=== PATIENT | male | born 1985 | race Caucasian/White ===

== ENCOUNTER 2019-09-13 15:27 | Emergency (ER) | payer SELFPAY ==
[2019-09-13 15:30] VITALS: BP 135/65; PULSE 94; RESP 18; TEMP 36.6; O2SAT 99; BMI 19.5
[2019-09-13 15:35] VITALS: BP 135/85; PULSE 99; RESP 18; O2SAT 99
--- NOTE | 2019-09-13 15:37 | PC.NURSE ---
Pt assessed at bedside. Pt here for reports of behavioral . Pt reports he is a recovering alcoholic and has been sober for 6 months. Pt states he can't cope with stress and needs to be seen . Pt denies wanting to harm himself and states he needs to be evaluated and possibly placed on medications.
--- NOTE | 2019-09-13 15:53 | ED_ITS ---
HPI - Psych General: Chief Complaint: Psychiatric Symptoms Stated Complaint: BEHAVIORAL Time Seen by Provider: 09/13/19 15:31 History of Present Illness: HPI Narrative: 33-year-old male presents emergency room stating he wants to be admitted to the psychiatric unit. He denies any suicidal homicidal ideation he just feels very stressed and he feels like he may be put in half-way if he is not admitted to the psychiatric unit. He states that in the past when he gets like this he will do something stupid with little results in him getting arrested. He says he has some marital stressors in his life now is having difficulty coping with him he is not on any medications. He has previously been admitted to the psychiatric unit. He is not currently taking any prescriptions. MD complaint: feels depressed Onset (ago): day(s) Duration: constant Associated symptoms: Deny homicidal ideation or suicidal ideation Review of Systems Const: Denies: fever, chills, body aches, change in appetite, fatigue or malaise ENMT: Denies: throat pain, ear pain, nasal discharge or nasal congestion Card: Denies: chest pain, edema, shortness of breath on exertion or shortness of breath when lying down Resp: Denies: shortness of breath, productive cough or non-productive cough GI: Denies: abdominal pain, nausea, vomiting, vomiting blood, coffee grounds in vomit, diarrhea, constipation, bloating, blood in stool or black tarry stool : Denies: flank pain, painful urination, urinary frequency or urinary urgency Skin/Breast: Denies: rash or itching Psych: Denies: suicidal ideation or homicidal ideation [facility] ED PFSH: Social History Smoking and tobacco status: current every day smoker Physical Exam Const: COMMON NORMALS: no apparent distress GENERAL APPEARANCE: cooperative and comfortable ORIENTATION/CONSCIOUSNESS: Yes awake, Yes oriented to person, Yes oriented to place and Yes oriented to time HENMT: COMMON NORMALS: normocephalic, head/scalp atraumatic, hearing grossly normal bilaterally, external ears normal, EAC's normal, TM's normal bilaterally, nasal mucous membranes and turbinates normal, moist oral mucous membranes and oropharynx normal HEAD & SCALP: normocephalic and atraumatic NOSE: nasal mucous membranes and turbinates normal EXTERNAL EAR: Yes external ears normal EXTERNAL AUDITORY CANAL: EAC's normal TYMPANIC MEMBRANE: TM's normal bilaterally Eye: COMMON NORMALS: PERRL, EOMs intact bilaterally, conjunctivae normal and no scleral icterus CONJUNCTIVA: Yes conjunctivae normal PUPIL: Yes PERRL Neck/C-Spine: COMMON NORMALS: full ROM, no lymphadenopathy, supple and no JVD Lymph: LYMPHATIC: no lymphadenopathy noted and no lymphedema noted Resp: COMMON NORMALS: normal respiratory effort, no retractions, no use of accessory muscles and clear to auscultation bilaterally AUSCULTATION: clear to auscultation bilaterally Cardio: COMMON NORMALS: no JVD, regular rate, regular rhythm and no murmurs RATE: regular rate RHYTHM: regular rhythm GI: COMMON NORMALS: soft to palpation and no hepatosplenomegaly AUSCULTATION: Yes normoactive bowel sounds PALPATION: Yes soft, No tender, No guarding and Yes no hepatosplenomegaly Extremity: COMMON NORMALS: normal to inspection, normal capillary refill, no clubbing, cyanosis or edema, no calf tenderness and no pedal edema Neuro: SENSORIUM/ORIENTATION: Yes oriented to person, Yes oriented to place and Yes oriented to time Skin: COMMON NORMALS: no rashes or lesions noted GENERAL SKIN EXAM: no rashes or lesions noted MDM - Psych MDM Narrative: Medical decision making narrative: Patient is neither suicidal or homicidal. He has threatened to beat up some other family members but states he does not plan to do it and does not plan to kill anyone. I reviewed the case with Dr. patel. Neither of us feel at this point there is any indication to admit the patient. He is not having any auditory or visual hallucinations. He is not having any suicidal ideation. A family member later called in stating they wanted him committed because he had threatened them advised him that they should reported to the police. Discharge Plan Discharge Patient Disposition: Home, Self-Care Clinical Impression: Bipolar disorder, Restless leg syndrome, Attention deficit hyperactivity disorder (ADHD) Condition: Stable Prescriptions: New hydroxyzine HCl 10 mg tablet 10 mg PO Q8H PRN (Reason: anxiety) Qty: 10 RF: 0 No Action trazodone 50 mg tablet 50 mg PO .HS PRN (Reason: sleep) RF: 0 risperidone [Risperdal] 1 mg tablet 1 mg PO BID RF: 0 risperidone [Risperdal] 1 mg tablet 1 mg PO .1/2 to One Daily PRNRF: 0 Discharge Orders: Discharge Order (Routine); Ordered 09/13/19 Ordered By: Keshawn Colón Referrals: Pacheco Wells MD [Family Provider] - Activity Restrictions/Additional Instructions: Follow-up with [facility]. Discharge Date/Time: 09/13/19 16:44 Coding Level of Care Code ED Saw Cleaner for Chg Fwd Exam Comprehensive
[2019-09-13 15:57] VITALS: PULSE 94; RESP 16; O2SAT 99
[2019-09-13 16:41] VITALS: RESP 16
== END 2019-09-13 16:44 | disposition home or self-care (01) ==
LOC: ER 16:49
PROVIDERS: Emergency Provider Family Medicine; Family Provider Internal Medicine Medical Oncology
DX: F31.9 Bipolar disorder, unspecified (principal); G25.81 Restless legs syndrome; F90.9 Attention-deficit hyperactivity disorder, unspecified type; F17.210 Nicotine dependence, cigarettes, uncomplicated
CPT/HCPCS: 12345; 99284; A9270; J3490

== ENCOUNTER 2019-09-13 17:35 | Inpatient (IN) | payer SELFPAY ==
--- NOTE | 2019-09-13 17:56 | ED_ITS ---
HPI - Psych General: Chief Complaint: Psychiatric Symptoms Stated Complaint: si Time Seen by Provider: 09/13/19 17:43 History of Present Illness: MD complaint: suicidal ideation Onset (ago): hour(s) Duration: constant History of same: Yes Relieving factors: none Context: significant life stressor Associated psychiatric symptoms: depression, suicidal ideation, racing thoughts and auditory hallucinations Associated symptoms: Reports auditory hallucinations; Deny visual hallucinations Treatments prior to arrival: none If self harm: admits thoughts of self harm Details of plan: I'm gonna cut my head of with my knife if you let me outta here . Review of Systems Const: Denies: fever or chills Eyes: Denies: change in vision or blurry vision ENMT: Denies: painful swallowing or facial/sinus pain Card: Denies: chest pain or palpitations Resp: Denies: shortness of breath, productive cough, non-productive cough or wheezing GI: Denies: abdominal pain, nausea or vomiting : Denies: difficulty urinating, painful urination or blood in urine Musc: Denies: neck pain, back pain, redness or joint warmth Skin/Breast: Denies: rash, itching or redness Neuro: Denies: headache, dizziness, vertigo, confusion or seizure-like activity Psych: Reports: anxiety and auditory hallucinations; Denies: visual hallucinations PFSH ED PFSH: Social History Smoking and tobacco status: current every day smoker Physical Exam Const: GENERAL APPEARANCE: well developed ORIENTATION/CONSCIOUSNESS: Yes oriented to person, Yes oriented to place and Yes oriented to time HENMT: COMMON NORMALS: normocephalic, external ears normal and external nose normal HEAD & SCALP: normocephalic; no scalp tenderness FACE & SINUS: normal facial exam NOSE: external nose normal and no nasal discharge EXTERNAL EAR: Yes external ears normal MOUTH: tongue normal Eye: COMMON NORMALS: PERRL, EOMs intact bilaterally and conjunctivae normal EYELID: eyelids normal CONJUNCTIVA: Yes conjunctivae normal PUPIL: Yes PERRL Neck/C-Spine: COMMON NORMALS: full ROM GENERAL: No tracheal deviation Chest: COMMONS NORMALS: inspection of chest normal CHEST: No tenderness Resp: COMMON NORMALS: clear to auscultation bilaterally EFFORT & INSPECTION: No tachypneic, No respiratory distress, No retractions, No uses accessory muscles and No tracheal deviation AUSCULTATION: clear to auscultation bilaterally, no rhonchi, no wheezes and lung sounds not diminished Cardio: COMMON NORMALS: regular rate and regular rhythm RATE: regular rate RHYTHM: regular rhythm HEART SOUNDS: no murmurs PERIPHERAL PULSES: radial pulses present GI: INSPECTION: No abdominal distension AUSCULTATION: No hyperactive bowel sounds and No hypoactive bowel sounds PALPATION: No guarding and No rigid PERCUSSION: no dullness to percussion and no tympanic to percussion Neuro: SENSORIUM/ORIENTATION: Yes oriented to person, Yes oriented to place and Yes oriented to time Psych: COMMON NORMALS: mental status grossly normal Skin: COMMON NORMALS: no rashes or lesions noted GENERAL SKIN EXAM: no rashes or lesions noted MDM - Psych MDM Narrative: Medical decision making narrative: 33-year-old male here earlier with some agitation. He checks back in, stating that he is worse, he cannot calm down . And that he is considering harming himself if he can get help. He is willing to stay he has been respectful, and has not refused any care. He states he is hearing voices. He is given a shot of Haldol, and some oral Ativan. He will go to the [facility] for further evaluation and management. Lab Data: Labs: Lab Results 09/13/19 09/13/19 09/13/19 Range/Units 18:15 18:15 18:33 WBC 11.5 H (4.0-10.0) 10^3/ uL RBC 4.80 (4.1-5.3) 10^6/u L Hgb 14.8 (11.7-16.6) g/dL Hct 45.3 (42.0-52.0) % MCV 94.4 H (80-94) fL MCH 30.8 (28.0-34.0) pg MCHC 32.7 (30.0-36.0) g/dL RDW 14.0 (12.1-15.1) % Plt Count 254 (130-400) 10^3/c mm MPV 10.6 H (7.4-10.4) fL Neut % (Auto) 69.8 % Lymph % (Auto) 21.4 % [place] % (Auto) 6.9 % Eos % (Auto) 1.0 % Baso % (Auto) 0.5 % Neut # (Auto) 8.0 H (1.8-7.7) 10^3/u L Lymph # (Auto) 2.5 (0.8-4.8) 10^3/u L [place] # (Auto) 0.8 (0.2-0.9) 10^3/u L Eos # (Auto) 0.1 (0.0-0.8) 10^3/u L Baso # (Auto) 0.1 (0.0-0.1) 10^3/u L Nucleated RBC % (a uto) 0 % Nucleated RBCs # 0.0 /100WBC Sodium 139 (136-145) mmol/L Potassium 3.5 (3.5-5.1) mmol/L Chloride 99 (98-107) mmol/L Carbon Dioxide 30 H (22-29) mmol/L Anion Gap 13.5 (5-19) BUN 17 (6-20) mg/dL Creatinine 1.1 (0.7-1.2) mg/dL GFR Calculation 76.6 L (90-130) mL/min Glucose 126 H (65-115) mg/dL Calculated Osmolal ity 286 (285-295) mOsm/k g Calcium 9.8 (8.5-10.5) mg/dL Total Bilirubin 0.3 (0.15-1.2) mg/dL AST 61 H (0-40) U/L ALT 159 H (0-41) U/L Alkaline Phosphata se 61 (40-130) IU/L Total Protein 7.3 (6.6-8.7) g/dL Albumin 4.6 (3.5-5.2) g/dL Globulin 2.7 (1.3-4.6) g/dL TSH 2.42 (0.27-4.20) uIU/ mL Urine Color Yellow (Yellow) Urine Appearance Cloudy (CLEAR) Urine pH 7 (5-7) Ur Specific Gravit y 1.010 (1.005-1.030) Urine Protein Neg (Negative) Urine Glucose (UA) Norm (Normal) Urine Ketones Negative (Negative) Urine Blood Neg (Negative) Urine Nitrate Negative (Negative) Urine Bilirubin Neg (NEGATIVE) Urine Urobilinogen 1 H (Negative) mg/dL Ur Leukocyte Cristina ase Negative (Negative) Urine RBC 5-10 H (0-2) /hpf Urine WBC 0-4 H (0-5) /hpf Ur Squamous Epith Cells Rare (0-5) Amorphous Sediment 3+ Urine Bacteria Trace (NONE) Urine Mucus Trace Urine Sperm 1+ Salicylates < 0.3 L (3-10) mg/dL Urine Opiates Scre en (Negative) ng/mL Acetaminophen < 5.0 L (10-30) ug/mL Ur Barbiturates Sc reen (Negative) ng/mL Ur Phencyclidine S crn (Negative) ng/mL Ur Amphetamines Sc reen (Negative) ng/mL U Benzodiazepines Scrn (Negative) ng/mL Urine Cocaine Scre en (Negative) ng/mL U Marijuana (THC) Screen (Negative) ng/mL Ethyl Alcohol < 10 (0-10) mg/dL 09/13/19 Range/Units 18:33 WBC (4.0-10.0) 10^3/ uL RBC (4.1-5.3) 10^6/u L Hgb (11.7-16.6) g/dL Hct (42.0-52.0) % MCV (80-94) fL MCH (28.0-34.0) pg MCHC (30.0-36.0) g/dL RDW (12.1-15.1) % Plt Count (130-400) 10^3/c mm MPV (7.4-10.4) fL Neut % (Auto) % Lymph % (Auto) % [place] % (Auto) % Eos % (Auto) % Baso % (Auto) % Neut # (Auto) (1.8-7.7) 10^3/u L Lymph # (Auto) (0.8-4.8) 10^3/u L [place] # (Auto) (0.2-0.9) 10^3/u L Eos # (Auto) (0.0-0.8) 10^3/u L Baso # (Auto) (0.0-0.1) 10^3/u L Nucleated RBC % (a uto) % Nucleated RBCs # /100WBC Sodium (136-145) mmol/L Potassium (3.5-5.1) mmol/L Chloride (98-107) mmol/L Carbon Dioxide (22-29) mmol/L Anion Gap (5-19) BUN (6-20) mg/dL Creatinine (0.7-1.2) mg/dL GFR Calculation (90-130) mL/min Glucose (65-115) mg/dL Calculated Osmolal ity (285-295) mOsm/k g Calcium (8.5-10.5) mg/dL Total Bilirubin (0.15-1.2) mg/dL AST (0-40) U/L ALT (0-41) U/L Alkaline Phosphata se (40-130) IU/L Total Protein (6.6-8.7) g/dL Albumin (3.5-5.2) g/dL Globulin (1.3-4.6) g/dL TSH (0.27-4.20) uIU/ mL Urine Color (Yellow) Urine Appearance (CLEAR) Urine pH (5-7) Ur Specific Gravit y (1.005-1.030) Urine Protein (Negative) Urine Glucose (UA) (Normal) Urine Ketones (Negative) Urine Blood (Negative) Urine Nitrate (Negative) Urine Bilirubin (NEGATIVE) Urine Urobilinogen (Negative) mg/dL Ur Leukocyte Cristina ase (Negative) Urine RBC (0-2) /hpf Urine WBC (0-5) /hpf Ur Squamous Epith Cells (0-5) Amorphous Sediment Urine Bacteria (NONE) Urine Mucus Urine Sperm Salicylates (3-10) mg/dL Urine Opiates Scre en Negative (Negative) ng/mL Acetaminophen (10-30) ug/mL Ur Barbiturates Sc reen Negative (Negative) ng/mL Ur Phencyclidine S crn Negative (Negative) ng/mL Ur Amphetamines Sc reen Negative (Negative) ng/mL U Benzodiazepines Scrn Negative (Negative) ng/mL Urine Cocaine Scre en Negative (Negative) ng/mL U Marijuana (THC) Screen Positive H (Negative) ng/mL Ethyl Alcohol (0-10) mg/dL Discharge Plan Discharge Admit Provider: Dimitry Cho Discharge Date/Time: 09/13/19 19:56 Coding Level of Care Code ED Spray Gun Repairer for Chg Fwd Exam Comprehensive
[2019-09-13 18:03] VITALS: BP 139/91; PULSE 106; RESP 18; TEMP 36.7; O2SAT 98; BMI 22.1
[2019-09-13 18:05] VITALS: RESP 18
[2019-09-13 18:22] LABS: Basophils # 0.1 10^3/uL (0.0-0.1); Basophils % 0.5 %; Eosinophils # 0.1 10^3/uL (0.0-0.8); Hematocrit 45.3 % (42.0-52.0); Hemoglobin 14.8 g/dL (11.7-16.6); Lymphocytes # 2.5 10^3/uL (0.8-4.8); Lymphocytes % 21.4 %; Mean Corpuscular HGB Conc 32.7 g/dL (30.0-36.0); Mean Corpuscular Hemoglobin 30.8 pg (28.0-34.0); Mean Corpuscular Volume 94.4 fL (80-94); Mean Platelet Volume 10.6 fL (7.4-10.4); Monocytes # 0.8 10^3/uL (0.2-0.9); Monocytes % 6.9 %; Neutrophils % 69.8 %; Nucleated Red Blood Cells % 0 %; Platelet Count 254 10^3/cmm (130-400); White Blood Count 11.5 10^3/uL (4.0-10.0)
[2019-09-13] MEDS: LORazepam 2 mg Tablet PO (18:27)
[2019-09-13] MEDS: nicotine 21 mg Patch 1 PATCH TRANSDERMA (18:28)
[2019-09-13] MEDS: haloperidol inj 5 mg/mL INJ 1 mL IM (18:29)
[2019-09-13 18:48] LABS: Acetaminophen < 5.0 ug/mL (10-30); Alanine Aminotransferase 159 U/L (0-41); Albumin Level 4.6 g/dL (3.5-5.2); Alcohol Level < 10 mg/dL (0-10); Alkaline Phosphatase 61 IU/L (40-130); Anion Gap 13.5 (5-19); Aspartate Amino Transferase 61 U/L (0-40); Blood Urea Nitrogen 17 mg/dL (6-20); Calcium 9.8 mg/dL (8.5-10.5); Carbon Dioxide 30 mmol/L (22-29); Chloride 99 mmol/L (98-107); Globulin 2.7 g/dL (1.3-4.6); Glomerular Filtration Rate 76.6 mL/min (90-130); Glucose 126 mg/dL (65-115); Osmolality Calculated 286 mOsm/kg (285-295); Potassium 3.5 mmol/L (3.5-5.1); Salicylate < 0.3 mg/dL (3-10); Sodium 139 mmol/L (136-145); Total Bilirubin 0.3 mg/dL (0.15-1.2); Total Protein 7.3 g/dL (6.6-8.7)
[2019-09-13 18:49] LABS: Thyroid Stimulating Hormone 2.42 uIU/mL (0.27-4.20)
[2019-09-13 18:58] LABS: Bilirubin Urine Neg (NEGATIVE); Blood Urine Neg (Negative); Glucose Urine UA Norm (Normal); Ketones Urine Negative (Negative); Leukocyte Esterase Urine Negative (Negative); Nitrate Urine Negative (Negative); Protein Urine Neg (Negative); Urine Appearance Cloudy (CLEAR); Urine Color Yellow (Yellow); Urobilinogen Urine 1 mg/dL (Negative); pH Urine 7 (5-7)
[2019-09-13 18:59] LABS: Add Urine Microscopic? YES
[2019-09-13 19:00] LABS: WBC Urine 0-4 /hpf (0-5)
[2019-09-13 19:01] LABS: Amphetamines Screen Urine Negative (Negative); Barbiturates Screen Urine Negative (Negative); Benzodiazepines Screen Urine Negative (Negative); Cocaine Screen Urine Negative (Negative); Opiate Screen Urine Negative (Negative); PCP Screen Urine Negative (Negative); THC Screen Urine Positive (Negative)
[2019-09-13 19:02] LABS: Amorphous Sediment Urine 3+; Bacteria Urine TRACE; Mucus Urine TRACE; Sperm Urine 1+; Squamous Epithelial Cell Urine RARE (0-5)
[2019-09-13 19:03] LABS: Add Urine Culture? No
[2019-09-13 19:41] VITALS: BP 118/62; PULSE 74; RESP 16; O2SAT 98
[2019-09-13 19:52] VITALS: BP 99/68; PULSE 93; RESP 18; TEMP 36.6; O2SAT 96
[2019-09-13 22:00] VITALS: BP 99/68; PULSE 93; RESP 18; TEMP 36.6; O2SAT 96
[2019-09-14 06:00] VITALS: BP 106/71; PULSE 86; RESP 17; TEMP 36.6; O2SAT 97
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
[2019-09-14] MEDS: lamoTRIgine 25 mg Tablet PO (12:41)
[2019-09-14 14:00] VITALS: BP 110/70; PULSE 80; RESP 18; TEMP 37; O2SAT 97
[2019-09-14] MEDS: propranolol 20 mg Tablet PO ×2 (15:43→21:24)
[2019-09-14] MEDS: nicotine 2 mg Gum BUCCAL (18:01)
[2019-09-14 21:37] VITALS: BP 111/71; PULSE 75; RESP 21; TEMP 37; O2SAT 98
--- NOTE | 2019-09-14 21:48 | PC.NURSE ---
Pt given HS propranolol at 2100.
[2019-09-15 06:00] VITALS: BP 115/70; PULSE 58; RESP 20; TEMP 36.6; O2SAT 98
[2019-09-15] MEDS: propranolol 20 mg Tablet PO ×3 (08:09→20:43)
[2019-09-15] MEDS: lamoTRIgine 25 mg Tablet PO (08:09)
[2019-09-15] MEDS: nicotine 2 mg Gum BUCCAL ×2 (08:10→15:02)
[2019-09-15] MEDS: hyDROXYzine 25 mg Capsule 50 MG PO ×2 (10:10→20:43)
--- NOTE | 2019-09-15 10:11 | PC.NURSE ---
PRN VISTARIL 50 MG GIVEN PO PER PT C/O INCREASED ANXIETY. 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 WILL CONT TO MONITOR
[2019-09-15 14:00] VITALS: BP 101/63; PULSE 63; RESP 20; TEMP 37.1; O2SAT 97
--- NOTE | 2019-09-15 15:05 | P.PN_ITS ---
Subjective NPU Subjective: Interval history: Diony presents today reporting that things are going a little better. He reports he does not feel a major impact from the medication. We discussed that fact that, at this point, we desire that he does not have any side effects and that the Lamictal will be a slow but steady improvement as we increase the medication and avoid the risk for Wright-Hussein syndrome, by taking it at the appropriate pace. We agreed that we would consider adding additional medication but that ultimately, in this situation, Lamictal as a mood stabilizer, and given his resentment for the way that medications might make him feel this is a really good option. He had some insight today identifying his role in things not going well for him and the importance of him making appropriate choices. He still seemed somewhat resistant to identifying the role that drugs of abuse might have in his decompensation and limitations, given the clarity that he noted in it interfering with his ability to hold a job or sustain relationships. Mental Status Exam MSE Comments: This is a slender, white male, with tattoos on his exposed skin, with adequate grooming and eye contact. With noted earlobe mutilation from gaging without the gages in. No abnormal movements, except for improving psychomotor agitation. More cooperative with exam in improving but mild distress. Speech was increased rate and volume but improving. Mood described as okay; affect less irritable. Thought process, organized. Thought content: patient denied any suicidal or homicidal ideation, there were no delusions reported or noted, he denied any auditory or visual hallucinations. Attention, concentration, and memory appeared intact but were not formally tested. He is alert and oriented times three. Insight and judgment are limited but improving. Vitals/I&O/Wt Last Vital Signs Temp 97.9 F 09/15/19 22:00 Pulse 60 09/15/19 22:00 Resp 17 09/15/19 22:00 BP 120/72 09/15/19 22:00 Pulse Ox 98 09/15/19 22:00 Weight last 48 hrs Weight 61.326 kg Data NPU : 09/13/19 18:15 09/13/19 18:15 A&P Additional A&P Information (1) Bipolar disorder: This is a 33 year old, white male, with active addiction, post-traumatic stress disorder, and likely Cluster B pathology, who presents now seemingly open to medication. Continue current medication. Encourage individual and milieu therapy. Continue q 15-minute checks for safety. Encourage sober living aftercare at the highest level of treatment to which he is willing to commit. (2) Attention deficit hyperactivity disorder (ADHD): (3) Anxiety: (4) Depression: Involuntary Hold Information 96 Hour Hold: 96 Hour Involuntary Admission: No Attestations NPU Medical Necessity Statement*: Inpatient hospitalization is medically necessary and the clinically appropriate intervention at this time. We will monitor medications and adjust as indicated. Likely length of stay 1-3 days. 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
[2019-09-15] MEDS: OLANZapine ODT 5 MG TABLET PO (15:36)
--- NOTE | 2019-09-15 15:36 | PC.NURSE ---
PRN ZYPREXA ZYDIS 5 MG GIVEN PO PER PT C/O AGITATION. PT UPSET AFTER PHONE CALL, YELLING AND PRESSURED SPEECH NOTED WHILE ON PHONE. PT OFFERED PRN MEDICATION PT STATED HE WOULD TAKE IF IT WORKED, HIT ME WITH A SHOT THOSE REALLY WORK! WILL CONT TO MONITOR
--- NOTE | 2019-09-15 21:48 | PC.NURSE ---
Pt given scheduled propranolol and prn visteril at 2100.
[2019-09-15 22:00] VITALS: BP 120/72; PULSE 60; RESP 17; TEMP 36.6; O2SAT 98
[2019-09-16 05:52] VITALS: BP 112/74; PULSE 66; RESP 20; TEMP 36.7; O2SAT 99
[2019-09-16] MEDS: nicotine 2 mg Gum BUCCAL ×3 (06:23→17:54)
[2019-09-16] MEDS: propranolol 20 mg Tablet PO ×3 (08:27→20:26)
[2019-09-16] MEDS: lamoTRIgine 25 mg Tablet PO (08:27)
[2019-09-16] MEDS: hyDROXYzine 25 mg Capsule 50 MG PO ×2 (11:20→20:25)
--- NOTE | 2019-09-16 11:21 | PC.NURSE ---
PRN VISTARIL 50 MG GIVEN PO PER PT C/O ANXIETY
--- NOTE | 2019-09-16 13:44 | P.PN_ITS ---
Subjective NPU Subjective: Interval history: Diony presented today much more amenable to conversation without the significant negative energy and anger that had dominated the initial conversations; the irritability, that was overwhelming during his initial couple of interviews, has been replaced with reflection and concern for how does he get this right and not continue this pattern beyond this 33th year. We had a fairly insightful conversation about how does change occur and what does he need to do to institute change in his life, including identifying where he is, identifying the issues, identifying where he wants to be and setting goals, but most importantly having accountability as part of this process. Mental Status Exam MSE Comments: This is a slender, white male, with adequate dress, grooming, and eye contact. He has significant tattooing on his exposed skin, especially on his left arm and some on his face. He has garcia earlobes, without the gages in, so they are somewhat hanging. No abnormal movements. Cooperative with exam in no acute distress. Speech was normal rate and volume. Mood described as a little better; affect congruent and occasionally tearful, but in an appropriate manner. Thought process, organized. Thought content: patient denied any suicidal or homicidal ideation, there were no delusions reported or noted, he denied any auditory or visual hallucinations. Attention, concentration, and memory appeared intact but were not formally tested. Alert and oriented times three. Insight and judgment are improving. Vitals/I&O/Wt Last Vital Signs Temp 98.1 F 09/16/19 22:00 Pulse 84 09/16/19 22:00 Resp 18 09/16/19 22:00 BP 107/67 09/16/19 22:00 Pulse Ox 98 09/16/19 22:00 Data NPU : 09/13/19 18:15 09/13/19 18:15 A&P Additional A&P Information (1) Bipolar disorder: This is a 33 year old, white male, with active addiction, post-traumatic stress disorder, and likely Cluster B pathology, who presents now seemingly open to medication. Continue current medication. Encourage individual and milieu therapy. Continue q 15-minute checks for safety. Encourage sober living aftercare at the highest level of treatment to which he is willing to commit. (2) Attention deficit hyperactivity disorder (ADHD): (3) Anxiety: (4) Depression Involuntary Hold Information 96 Hour Hold: 96 Hour Involuntary Admission: No Attestations NPU Medical Necessity Statement*: Inpatient hospitalization is medically necessary and the clinically appropriate intervention at this time. We will monitor medications and adjust as indicated. Likely length of stay 1-3 days. 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
[2019-09-16 14:00] VITALS: BP 100/69; PULSE 71; RESP 18; TEMP 36.9; O2SAT 98
--- NOTE | 2019-09-16 20:26 | PC.NURSE ---
Pt given scheduled propranolo and PRN Visteril.
[2019-09-16 22:00] VITALS: BP 107/67; PULSE 84; RESP 18; TEMP 36.7; O2SAT 98
[2019-09-17 06:00] VITALS: BP 108/72; PULSE 58; RESP 18; TEMP 36.4; O2SAT 99
[2019-09-17] MEDS: nicotine 2 mg Gum BUCCAL ×4 (06:30→17:56)
[2019-09-17] MEDS: propranolol 20 mg Tablet PO ×3 (08:05→20:28)
[2019-09-17] MEDS: hyDROXYzine 25 mg Capsule 50 MG PO (08:05)
[2019-09-17] MEDS: lamoTRIgine 25 mg Tablet PO (08:05)
--- NOTE | 2019-09-17 08:06 | PC.NURSE ---
PRN VISTARIL 50 MG GIVEN PO PER PT C/O ANXIETY. PT STATED HE DIDN'T SLEEP AT ALL LAST NIGHT, WAS UP EVERY HOUR ON THE HOUR WILL CONT TO MONITOR.
[2019-09-17 14:00] VITALS: BP 107/72; PULSE 57; RESP 18; TEMP 36.8; O2SAT 99
--- NOTE | 2019-09-17 14:41 | P.PN_ITS ---
Subjective NPU Subjective: Interval history: Diony presents today reporting that he was having a rough day. He had talked to his mother who had initially said he could come home, but then she was kind of balking on that. In talking to social workers, the possibility of a place called [facility] was raised and initially he was struggling because they have some pretty strict rules, first month no phone, as well as no drugs including marijuana, etc. At first he was looking at the glass though is happy empty, and was thinking he might reject the offer and was trying to figure out what he was going to do, but after our conversation he acknowledged that this is only a short time. 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 He reports he is eating and sleeping better. Mental Status Exam MSE Comments: This is a well-nourished, slender, white male, with adequate dress, grooming, and eye contact. Significant tattooing on his exposed skin including his face, neck, and prominently on his left arm with poor dentition. Cooperative with exam in no acute distress. Speech was more normal rate and volume. Mood described as a little better but stressed. Affect congruent. Thought process, organized. Thought content: patient denied any suicidal or homicidal ideation, there were no delusions reported or noted, patient denied any auditory or visual hallucinations. Attention, concentration, and memory appeared intact but were not formally tested. Alert and oriented times three. Insight and judgment are improving. Vitals/I&O/Wt Last Vital Signs Temp 98.5 F 09/17/19 21:43 Pulse 58 L 09/17/19 21:43 Resp 18 09/17/19 21:43 BP 94/57 09/17/19 21:43 Pulse Ox 99 09/17/19 21:43 Data NPU : 09/13/19 18:15 09/13/19 18:15 A&P Additional A&P Information (1) Bipolar disorder: This is a 33 year old, white male, with active addiction, post-traumatic stress disorder, and likely Cluster B pathology, who presents now seemingly open to medication. Continue current medication. Encourage individual and milieu therapy. Continue q 15-minute checks for safety. Encourage sober living aftercare at the highest level of treatment to which he is willing to commit. (2) Attention deficit hyperactivity disorder (ADHD): (3) Anxiety: (4) Depression Involuntary Hold Information 96 Hour Hold: 96 Hour Involuntary Admission: No Attestations NPU Medical Necessity Statement*: Inpatient hospitalization is medically necessary and the clinically appropriate intervention at this time. We will monitor medications and adjust as indicated. Likely length of stay 1-2 days. 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
[2019-09-17] MEDS: haloperidol 5 mg Tablet PO (16:53)
--- NOTE | 2019-09-17 16:54 | PC.NURSE ---
PRN HALDOL 5 MG GIVEN PO PER PT C/O ANXIETY! AGITATION! HASN'T SLEPT IN 3 FREAKING DAYS! PT STATED HE WOULD RATHER HAVE A SHOT IN THE BUTT. PILL OFFERED & PT AGREEABLE TO TAKE MED. WILL CONT TO MONITOR.
[2019-09-17] MEDS: trazodone 50 mg Tablet PO (20:30)
[2019-09-17 21:43] VITALS: BP 94/57; PULSE 58; RESP 18; TEMP 36.9; O2SAT 99
[2019-09-18 06:00] VITALS: BP 127/77; PULSE 50; RESP 18; TEMP 36.4; O2SAT 98
[2019-09-18] MEDS: nicotine 2 mg Gum BUCCAL ×5 (06:07→18:12)
[2019-09-18] MEDS: propranolol 20 mg Tablet PO ×3 (08:55→21:00)
[2019-09-18] MEDS: haloperidol 5 mg Tablet PO ×2 (08:55→13:22)
[2019-09-18] MEDS: lamoTRIgine 25 mg Tablet PO (08:55)
--- NOTE | 2019-09-18 08:55 | PC.NURSE ---
Addendum entered by Sallie Madrigal LPN 09/18/19 10:00: MEDICATION EFFECTIVE. PATIENT IS LYING IN BED RESTING. RESPIRATIONS EVEN AND UNLABORED. Original Note: PRN HALDOL HALDOL 5MG PO PER PATIENT C/O AGITATION/ANXIETY. WILL CONTINUE TO MONITOR FOR MEDICATION EFFECTIVENESS.
[2019-09-18 13:17] VITALS: BP 102/65; PULSE 55; RESP 18; TEMP 36.9; O2SAT 96
--- NOTE | 2019-09-18 13:22 | PC.NURSE ---
PRN HALDOL HALDOL 5MG PO PER PATIENT C/O AGITATION/ANXIETY. WILL CONTINUE TO MONITOR FOR MEDICATION EFFECTIVENESS.
--- NOTE | 2019-09-18 14:20 | PC.NURSE ---
PRN HALDOL FOLLOW UP MEDICATION EFFECTIVE. NO FURTHER C/O AGITATION/ANXIETY.
--- NOTE | 2019-09-18 15:54 | PM.NPN ---
Subjective NPU Subjective: Interval history: Diony presents today reporting that he is feeling better. He feels really good about his decision to move forward with [employer]. 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 He denies any issues with the medication, however, he has been taking Haldol as a prn medication and reported some stiffness such that we encouraged some Cogentin doses. 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 Otherwise, he endorses optimism about discharge tomorrow. Mental Status Exam MSE Comments: This is a slender, white male, with adequate dress, grooming, and eye contact, with significant tattooing on his exposed skin, especially his left arm, and also on his neck and face. With poor dentition. No abnormal movements. Cooperative with exam in no acute distress. Speech was slightly increased rate and normal volume. Mood described as feeling optimistic; affect congruent. Thought process, organized. Thought content: patient denied any suicidal or homicidal ideation, there were no delusions reported or noted, patient denied any auditory or visual hallucinations. Attention, concentration, and memory appeared intact but were not formally tested. He is alert and oriented times three. Insight and judgment are fair. Vitals/I&O/Wt Last Vital Signs Temp 97.3 F L 09/18/19 21:14 Pulse 59 L 09/18/19 21:14 Resp 19 H 09/18/19 21:14 BP 131/76 09/18/19 21:14 Pulse Ox 100 09/18/19 21:14 Data NPU : 09/13/19 18:15 09/13/19 18:15 A&P Additional A&P Information (1) Bipolar disorder: This is a 33 year old, white male, with active addiction, post-traumatic stress disorder, and likely Cluster B pathology, who presents now seemingly open to medication. Continue current medication. Encourage individual and milieu therapy. Continue q 15-minute checks for safety. Encourage sober living aftercare at the highest level of treatment to which he is willing to commit. (2) Attention deficit hyperactivity disorder (ADHD): (3) Anxiety: (4) Depression Involuntary Hold Information 96 Hour Hold: 96 Hour Involuntary Admission: No Attestations NPU Medical Necessity Statement*: Inpatient hospitalization is medically necessary and the clinically appropriate intervention at this time. We will monitor medications and adjust as indicated. Tomorrow. Coding Level of Care Code Acute Dish Maker for Annabelle Castillo
[2019-09-18] MEDS: benztropine 1 mg Tablet PO ×2 (19:11→21:00)
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
[2019-09-18 21:14] VITALS: BP 131/76; PULSE 59; RESP 19; TEMP 36.3; O2SAT 100
[2019-09-19 06:00] VITALS: BP 105/61; PULSE 55; RESP 17; TEMP 36.9; O2SAT 98
[2019-09-19] MEDS: nicotine 2 mg Gum BUCCAL (06:46)
[2019-09-19] MEDS: propranolol 20 mg Tablet PO (09:17)
[2019-09-19] MEDS: lamoTRIgine 25 mg Tablet PO (09:17)
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
[2019-09-19 10:58] VITALS: BP 105/61; PULSE 55; RESP 17; TEMP 36.9; O2SAT 98
== END 2019-09-19 11:28 | disposition home or self-care (01) | DRG 885 ==
LOC: ER 18:37 → NP 19:36
PROVIDERS: Admitting Provider Psychiatry & Neurology Psychiatry; Emergency Provider Emergency Medicine; Family Provider Internal Medicine Medical Oncology; Visit Provider Psychiatry & Neurology Psychiatry
DX: F31.9 Bipolar disorder, unspecified (principal); R45.851 Suicidal ideations; F41.8 Other specified anxiety disorders; F90.9 Attention-deficit hyperactivity disorder, unspecified type; F17.210 Nicotine dependence, cigarettes, uncomplicated; F10.20 Alcohol dependence, uncomplicated; F12.20 Cannabis dependence, uncomplicated
CPT/HCPCS: 12345; 80053; 80306; 80307; 81001; 84443; 85025; 96372; 99284; J1630

== ENCOUNTER 2019-11-17 12:23 | Emergency (ER) | payer SELFPAY ==
[2019-11-17 12:29] VITALS: BP 119/70; PULSE 70; RESP 17; TEMP 36.5; O2SAT 97; BMI 21.2
--- NOTE | 2019-11-17 12:51 | ED_ITS ---
HPI - Wound/Laceration General: Chief Complaint: Wound/Laceration Stated Complaint: cut left hand Time Seen by Provider: 11/17/19 12:51 Source: patient Mode of arrival: ambulatory Limitations: no limitations History of Present Illness: HPI narrative: Patient comes in for laceration to the left hand palmar aspect. Patient was using a knife to open up a container and it slipped cutting him in the left palmar aspect of the hand just proximal to the second digit. Patient has good range of motion of the hand. Bleeding is under controlled. Review of Systems General: Reports: 10 or more systems reviewed and unremarkable except in HPI and below Skin/Breast: Reports: other (Laceration hand left side.) PFSH ED PFSH: Social History Smoking and tobacco status: current every day smoker Physical Exam Const: COMMON NORMALS: no acute distress and patient oriented x3 GENERAL APPEARANCE: cooperative HENMT: COMMON NORMALS: normocephalic and Normal external nose present HEAD & SCALP: normal to inspection and normocephalic NOSE: Normal external nose present MOUTH: Normal oral and palatal mucosa present Eye: GENERAL EYE: appearance normal, both eyes and all related structures Neck/C-Spine: COMMON NORMALS: full ROM Chest: COMMONS NORMALS: normal inspection of the chest Resp: COMMON NORMALS: normal respiratory effort EFFORT & INSPECTION: Yes able to speak in complete sentences Cardio: COMMON NORMALS: regular rate and regular rhythm RATE: regular rate RHYTHM: regular rhythm GI: COMMON NORMALS: non-tender : COMMON NORMALS: Yes no CVA tenderness BLADDER/KIDNEY EXAM: Yes no CVA tenderness Back/Pelvis: COMMON NORMALS: no CVA tenderness and thoracic and lumbar spine normal to inspection Extremity: COMMON NORMALS: normal to inspection Neuro: COMMON NORMALS: patient oriented x3 and moves all extremities Psych: COMMON NORMALS: mental status grossly normal and cooperative Skin: NARRATIVE SKIN EXAM: 3 cm lacerations noted to the left hand, palmar aspect just proximal to the second digit. Procedures Laceration Laceration 1: Site: hand Side (If applicable): left Size (cm): 3 Description: linear Depth: simple, single layer Local Anesthetic: lidocaine 1% Amount of anesthesia used (mL): 5 Pre-repair: wound explored, irrigated extensively and deep structures intact Skin layer closed with: nylon Size (cm): 4-0 Number of sutures: 6 Technique: simple, interrupted Course Vital Signs: Vital signs: Vital Signs Temperature 97.7 F 11/17/19 12:29 Pulse Rate 70 11/17/19 12:29 Respiratory Rate 17 11/17/19 12:29 Blood Pressure 119/70 11/17/19 12:29 Pulse Oximetry 97 11/17/19 12:29 MDM - Wound/Laceration MDM Narrative: Medical decision making narrative: Patient comes in for injury to the left hand. On exam we note a 3 cm laceration to the left hand. Patient good range of motion of the hand, no tendon injury, no foreign body. Differential diagnosis includes laceration, tendon injury, foreign body. Laceration was repaired with simple interrupted sutures, patient tolerated well. Reviewed postprocedure care and instructions. Patient reported understanding. Discharge Plan Discharge Patient Disposition: Home, Self-Care Clinical Impression: Laceration Condition: Stable Prescriptions: New Bactrim DS 800-160 mg tablet 1 tab PO DAILY 7 Days Qty: 14 RF: 0 No Action ziprasidone HCl [Geodon] 20 mg capsule 20 mg PO BID Qty: 30 RF: 0 haloperidol 5 mg Tablet 5 mg PO BID PRN (Reason: Agitation) 30 Days Qty: 60 RF: 1 Zyprexa 5 mg tablet 5 mg PO BEDTIME RF: 0 prazosin 2 mg capsule 2 mg PO BEDTIME RF: 0 Discharge Orders: Discharge Order (Routine); Ordered 11/17/19 Ordered By: Gareth Islas Referrals: Pacheco Wells MD [Family Provider] - Discharge Diet: Usual diet Discharge Activity: Increase activity as tolerated Patient Instructions: Laceration (ED) Activity Restrictions/Additional Instructions: Keep wound clean and dry. Use acetaminophen or ibuprofen for pain. Take antibiotics as directed. Sutures out in 7 to 10 days. Return to the ER for high fever or worsening symptoms. Discharge Date/Time: 11/17/19 13:27 Coding Level of Care Code ED Registered Vascular Technologist (Rvt) for Annabelle Castillo Exam Comprehensive
[2019-11-17] MEDS: lidocaine 1% INJ 20 mL INJECTION (12:57)
[2019-11-17 13:27] VITALS: BP 123/70; PULSE 75; RESP 16; O2SAT 98
== END 2019-11-17 13:27 | disposition home or self-care (01) ==
PROVIDERS: Emergency Provider Nurse Practitioner Family; Family Provider Internal Medicine Medical Oncology
DX: S61.412A Laceration without foreign body of left hand, initial encounter (principal); W26.0XXA Contact with knife, initial encounter; F17.210 Nicotine dependence, cigarettes, uncomplicated
CPT/HCPCS: 12002; 12345; 99281; 99282; J2001

== ENCOUNTER 2021-07-22 16:14 | Inpatient (IN) | payer MEDICAID, SELFPAY ==
[2021-07-22 16:24] VITALS: BP 126/79; PULSE 84; RESP 18; TEMP 36.8; O2SAT 99; BMI 21.1
--- NOTE | 2021-07-22 16:46 | W.ED.GENADLT ---
HPI - General Adult General: Chief complaint: Psychiatric Symptoms Stated complaint: MHE Time Seen by Provider: 07/22/21 16:29 History of Present Illness: HPI: [35]yo patient w/ hx of depression and psychosis BIBA for depression with SI and plan and psychosis. for On arrival, the patient is AAOx3 and cooperative with my evaluation. No focal complaints of chest pain, shortness of breath, palpitations, N/V, focal GI/ complaints. No complaints of hallucinations. Onset: acute Duration: ongoing Location: home Severity: severe Associated symptoms: Deny chest pain, dyspnea, nausea, rash, palpitations or vomiting Review of Systems Const: Denies: fever(s) or chills Eyes: Denies: change in vision ENMT: Denies: mouth pain Card: Denies: chest pain or palpitations Resp: Denies: dyspnea or non-productive cough GI: Denies: abdominal pain, nausea, vomiting or diarrhea : Denies: dysuria Musc: Denies: extremity pain Skin/Breast: Denies: rash or new lesions Neuro: Denies: weakness in extremities Psych: Reports: depression and mood swings Leland/Lymph: Denies: easy bruising PFS ED PFSH: Medical History (Updated 07/22/21 @ 16:48 by Aaron Coto MD) Depression Psychosis Social History (Updated 07/22/21 @ 16:48 by Aaron Coto MD) Smoking and tobacco status: current every day smoker Alcohol intake: never Substance/Drug Use: unknown Physical Exam Const: COMMON NORMALS: alert HENMT: COMMON NORMALS: atraumatic HEAD & SCALP: atraumatic MOUTH: moist mucous membranes not abnormal Eye: COMMON NORMALS: EOMs intact bilaterally and conjunctivae normal CONJUNCTIVA: Yes conjunctivae normal Neck/C-Spine: COMMON NORMALS: full ROM and supple Resp: COMMON NORMALS: normal respiratory effort and clear to auscultation bilaterally AUSCULTATION: clear to auscultation bilaterally Cardio: COMMON NORMALS: regular rate RATE: regular rate GI: COMMON NORMALS: Soft to palpation and non-tender PALPATION: Yes Soft to palpation Extremity: COMMON NORMALS: full ROM Neuro: SENSORIUM/ORIENTATION: Yes alert MOTOR EXAM: No Abnormal motor strength present and Other motor observations present (no focal motor deficits) Psych: COMMON NORMALS: cooperative MOOD & AFFECT: Yes depressed mood, Yes anxious and Yes Labile affect present Course Vital Signs: Vital signs: Vital Signs Temperature 98.2 F 07/22/21 16:24 Pulse Rate 84 07/22/21 16:24 Respiratory Rate 18 07/22/21 16:24 Blood Pressure 126/79 07/22/21 16:24 Pulse Oximetry 99 07/22/21 16:24 MDM - General Adult Medical Decision Making [35]yo patient w/ hx of schizoprhenia presenting for SI and psychosis. HDS, exam within normal limit Thoughts are linear and organized, and the patient has no AH/VH, or HI. Clinically the patient displays no overt toxidrome; they are well appearing, with low suspicion for toxic ingestion given history and exam. Symptoms unlikely 2/2 anemia, hypothyroidism, infection, or ICH. Workup: CBC, CMP, Lipase, salicylate/tylenol, UDS Lab findings: wnl, +marijuana in the urine [5:30pm] On reassessment, labs and workup wnl. Patient is hemodynamically stable with no acute medical complaints. Case discussed with psychiatric provider Dr. Doll at [facility] psych inpatient with recommendation for admission Disposition: Psych Lab Data : 07/22/21 17:50 07/22/21 17:50 Laboratory Results WBC 6.9 10^3/uL (4.0-10.0) 07/22/21 17:50 RBC 4.23 10^6/uL (4.1-5.3) 07/22/21 17:50 Hgb 12.9 g/dL (11.7-16.6) 07/22/21 17:50 Hct 40.2 % (42.0-52.0) L 07/22/21 17:50 MCV 95.0 fl (80-94) H 07/22/21 17:50 MCH 30.5 pg (28.0-34.0) 07/22/21 17:50 MCHC 32.1 g/dL (30.0-36.0) 07/22/21 17:50 RDW 13.9 % (12.1-15.1) 07/22/21 17:50 Plt Count 210 10^3/cmm (130-400) 07/22/21 17:50 MPV 10.9 fL (7.4-10.4) H 07/22/21 17:50 Neut % (Auto) 48.6 % 07/22/21 17:50 Lymph % (Auto) 38.0 % 07/22/21 17:50 Redwood % (Auto) 7.1 % 07/22/21 17:50 Eos % (Auto) 4.8 % 07/22/21 17:50 Baso % (Auto) 1.2 % 07/22/21 17:50 Neut # (Auto) 3.33 10^3/uL (1.8-7.7) 07/22/21 17:50 Lymph # (Auto) 2.6 10^3/uL (0.8-4.8) 07/22/21 17:50 Redwood # (Auto) 0.5 10^3/uL (0.2-0.9) 07/22/21 17:50 Eos # (Auto) 0.3 10^3/uL (0.0-0.8) 07/22/21 17:50 Baso # (Auto) 0.1 10^3/uL (0.0-0.1) 07/22/21 17:50 Nucleated RBC % (auto) 0 % 07/22/21 17:50 Nucleated RBCs # 0.0 /100WBC 07/22/21 17:50 Sodium 140 mmol/L (136-145) 07/22/21 17:50 Potassium 4.5 mmol/L (3.5-5.1) 07/22/21 17:50 Chloride 106 mmol/L (98-107) 07/22/21 17:50 Carbon Dioxide 27 mmol/L (22-29) 07/22/21 17:50 Anion Gap 11.5 (5-19) 07/22/21 17:50 BUN 13 mg/dL (6-20) 07/22/21 17:50 Creatinine 0.9 mg/dL (0.7-1.2) 07/22/21 17:50 GFR Calculation 95.5 mL/min (90-130) 07/22/21 17:50 Glucose 110 mg/dL (65-115) 07/22/21 17:50 Calculated Osmolality 291 mOsm/kg (285-295) 07/22/21 17:50 Calcium 8.8 mg/dL (8.5-10.5) 07/22/21 17:50 Total Bilirubin 0.2 mg/dL (0.15-1.2) 07/22/21 17:50 AST 20 U/L (0-40) 07/22/21 17:50 ALT 24 U/L (0-41) 07/22/21 17:50 Alkaline Phosphatase 54 IU/L (40-130) 07/22/21 17:50 Total Protein 6.7 g/dL (6.6-8.7) 07/22/21 17:50 Albumin 3.9 g/dL (3.5-5.2) 07/22/21 17:50 Globulin 2.8 g/dL (1.3-4.6) 07/22/21 17:50 Lipase 48 U/L (13-60) 07/22/21 17:50 TSH 1.00 uIU/mL (0.27-4.20) 07/22/21 17:50 Urine Opiates Screen Negative ng/mL (Negative) 07/22/21 17:50 Ur Barbiturates Screen Negative ng/mL (Negative) 07/22/21 17:50 Ur Phencyclidine Scrn Negative ng/mL (Negative) 07/22/21 17:50 Ur Amphetamines Screen Negative ng/mL (Negative) 07/22/21 17:50 U Benzodiazepines Scrn Negative ng/mL (Negative) 07/22/21 17:50 Urine Cocaine Screen Negative ng/mL (Negative) 07/22/21 17:50 U Marijuana (THC) Screen Positive ng/mL (Negative) H 07/22/21 17:50 Discharge Plan Discharge Patient Disposition: Admitted As Inpatient Clinical Impression: Psychosis, Suicidal ideation Condition: Stable Coding Level of Care Code ED Industrial Production Manager for Annabelle Fwd Exam Comprehensive
--- NOTE | 2021-07-22 17:49 | PC.NURSE ---
upon assessment patient becoming very angry and irrate. patient punching self in the arm. patient states they need to change that . why do you keep asking if i want to hurt other people. i dont . i just want hlep. i see everything. i see snf and i see white. patient very aggressive speech and tensing up.
[2021-07-22 18:02] LABS: Basophils # 0.1 10^3/uL (0.0-0.1); Basophils % 1.2 %; Eosinophils # 0.3 10^3/uL (0.0-0.8); Eosinophils % 4.8 %; Hematocrit 40.2 % (42.0-52.0); Hemoglobin 12.9 g/dL (11.7-16.6); Lymphocytes # 2.6 10^3/uL (0.8-4.8); Mean Corpuscular HGB Conc 32.1 g/dL (30.0-36.0); Mean Corpuscular Hemoglobin 30.5 pg (28.0-34.0); Mean Platelet Volume 10.9 fL (7.4-10.4); Monocytes # 0.5 10^3/uL (0.2-0.9); Monocytes % 7.1 %; Neutrophils # 3.33 10^3/uL (1.8-7.7); Neutrophils % 48.6 %; Nucleated Red Blood Cells % 0 %; Platelet Count 210 10^3/cmm (130-400); Red Blood Count 4.23 10^6/uL (4.1-5.3); Red Cell Distribution Width 13.9 % (12.1-15.1); White Blood Count 6.9 10^3/uL (4.0-10.0)
--- NOTE | 2021-07-22 18:06 | PC.NURSE ---
labs and urine obtained and sent to lab with no difficulties.
[2021-07-22 18:31] LABS: Alanine Aminotransferase 24 U/L (0-41); Albumin Level 3.9 g/dL (3.5-5.2); Alkaline Phosphatase 54 IU/L (40-130); Anion Gap 11.5 (5-19); Aspartate Amino Transferase 20 U/L (0-40); Blood Urea Nitrogen 13 mg/dL (6-20); Calcium 8.8 mg/dL (8.5-10.5); Carbon Dioxide 27 mmol/L (22-29); Chloride 106 mmol/L (98-107); Globulin 2.8 g/dL (1.3-4.6); Glomerular Filtration Rate 95.5 mL/min (90-130); Glucose 110 mg/dL (65-115); Lipase 48 U/L (13-60); Osmolality Calculated 291 mOsm/kg (285-295); Potassium 4.5 mmol/L (3.5-5.1); Sodium 140 mmol/L (136-145); Total Bilirubin 0.2 mg/dL (0.15-1.2); Total Protein 6.7 g/dL (6.6-8.7)
[2021-07-22 18:42] LABS: Amphetamines Screen Urine Negative (Negative); Barbiturates Screen Urine Negative (Negative); Benzodiazepines Screen Urine Negative (Negative); Cocaine Screen Urine Negative (Negative); Opiate Screen Urine Negative (Negative); PCP Screen Urine Negative (Negative); THC Screen Urine Positive (Negative)
[2021-07-22 18:54] LABS: Acetaminophen < 5.0 ug/mL (10-30); Salicylate < 0.3 mg/dL (3-10)
[2021-07-22 20:23] VITALS: BP 142/87; PULSE 99; RESP 16; O2SAT 99
[2021-07-22 21:36] LABS: Free T4 Free Thyroxine 0.94 ng/dL (0.82-1.77)
[2021-07-22] MEDS: haloperidol 5 mg Tablet PO (21:48)
[2021-07-22] MEDS: calcium carbonate 500 mg Chew Tablet PO (21:54)
[2021-07-22 22:00] VITALS: BP 112/77; PULSE 64; RESP 18; O2SAT 100
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
[2021-07-23 06:00] VITALS: BP 129/81; PULSE 89; RESP 18; O2SAT 98
[2021-07-23] MEDS: nicotine 2 mg Gum BUCCAL (11:17)
--- NOTE | 2021-07-23 11:55 | PC.NURSE ---
Behavior Note Patient was in the shower and began yelling for staff. Patient yelling that his fucking clothes are wet . Yelling is this a joke?!? This report went to patient's room, calmly asked what the patient needed. Patient yells i need dry clothes and something to clean up the floor. Patient was given dry clothes and towels. Patient instantly calm and thanked this staff for helping. States he is sorry and knows that he gets angry easily. Patient did request something to help with his anger outburst. Zyprexa 5mg given PO.
[2021-07-23] MEDS: OLANZapine 5 mg ODT PO (11:56)
--- NOTE | 2021-07-23 12:50 | PC.NURSE ---
follow up Patient in bed resting with eyes closed.
[2021-07-23 14:00] VITALS: BP 96/57; PULSE 46; RESP 16; TEMP 36.7; O2SAT 98
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
[2021-07-23 22:00] VITALS: PULSE 96; RESP 22; TEMP 36.8; O2SAT 94
[2021-07-24 06:00] VITALS: BP 120/71; PULSE 62; RESP 18; TEMP 36.3; O2SAT 99; BMI 21.1
[2021-07-24] MEDS: nicotine 2 mg Gum BUCCAL (06:20)
[2021-07-24] MEDS: nicotine 4 mg lozenge MUCOUS MEM ×4 (10:33→18:22)
[2021-07-24] MEDS: OLANZapine 5 mg ODT PO ×2 (10:33→13:45)
--- NOTE | 2021-07-24 10:40 | PC.NURSE ---
Addendum entered by Jo-Ann De La Rosa LPN 07/24/21 11:16: Pt has calmed down and is resting at this time. Original Note: Verbal outburst Pt became upset and started cussing and yelling while on the phone with mom. Pt walked by Nurses station and said I need a pill. Administered 5 mg Zyprexa Zydis for agitation and AH.
--- NOTE | 2021-07-24 11:38 | P.NPUPN_ITS ---
Subjective NPU Subjective: Interval history: Patient presented today reporting that things are going a little better. He reports that he does not know why he gets the way he does with anxiety and poor interactions with people with poor impulse control. He reports that some medications can work but sometimes medications that seem to work are the ones that people do not want to prescribe. Staff reports he is doing much better and is much more redirectable, but still fairly impulsive. We discussed working with the treatment team to find options for discharge. Medications: Medication Review Details: This is a slender white male in hospital scrubs with limited grooming and eye contact. Poor or mostly absent dentition. No abnormal movements except for psychomotor agitation. More cooperative with exam in mild to moderate distress. Speech was increased rate and volume. Mood described as a little better, affect congruent. Thought process organized. Thought content: Patient endorsed irritability but denied suicidal or homicidal ideation, there are no delusions reported and paranoid and persecutory thinking seem to be diminishing. He denied auditory or visual hallucinations. Attention and concentration were improving and memory seemed more reliable but none were formally tested. He is alert and oriented x3. Insight and judgment are impaired, impulse control is impaired and concern for his intellectual ability being limited versus impaired was present. Vitals/I&O/Wt Last Vital Signs Temp 97.3 F L 07/24/21 06:00 Pulse 62 07/24/21 06:00 Resp 18 07/24/21 06:00 BP 120/71 07/24/21 06:00 Pulse Ox 99 07/24/21 06:00 Weight last 48 hrs Weight 61.235 kg Data NPU : 07/22/21 17:50 07/22/21 17:50 A&P Assessment and plan (1) Psychosis: Status: Acute (2) Suicidal ideation: Status: Acute (3) Alcohol use disorder, severe, in early remission, dependence: Status: Acute (4) Cannabis use disorder, severe, dependence: Status: Acute (5) Generalized anxiety disorder: Status: Acute (6) Post-traumatic stress disorder, chronic: Status: Acute (7) Bipolar disorder: Status: Acute (8) Depression: Status: Acute Plan This is a 35 year old, white male, with active addiction, post-traumatic stress disorder, and likely Cluster B pathology, who presents now seemingly open to only anxiety medication/benzodiazepines ? ? Continue current medication. Continue to offer mood stabilizers and antianxiety medications that are not habit-forming. Encourage individual and milieu therapy. Continue q 15-minute checks for safety. Encourage sober living aftercare at the highest level of treatment to which he is willing to commit.? Involuntary Hold Information 96 Hour Hold: 96 Hour Involuntary Admission: No Attestations NPU Medical Necessity Statement*: Inpatient hospitalization is medically necessary and the clinically appropriate intervention at this time. We will monitor medication to make changes as indicated.Likely length of stay 3-5 days. Coding Level of Care Code Acute Bumper Straightener for [facility] Fwd Diagnoses Psychosis F29 Suicidal ideation R45.851 Alcohol use disorder, severe, in early remission, dependence F10.21 Cannabis use disorder, severe, dependence F12.20 Generalized anxiety disorder F41.1 Post-traumatic stress disorder, chronic F43.12 Bipolar disorder F31.9 Depression F32.9
[2021-07-24 14:00] VITALS: BP 104/63; PULSE 53; RESP 16; TEMP 36.4; O2SAT 98
[2021-07-24] MEDS: acetaminophen 325 mg Tablet 650 MG PO (15:49)
[2021-07-24] MEDS: haloperidol 5 mg Tablet PO (16:06)
--- NOTE | 2021-07-24 18:10 | PC.NURSE ---
pt came to nurses station asking what do i need to do to get out of here . instructed pt that Dr Doll stepped off the unit and would return to discuss best plan of care with pt, pt was agreeable to waiting for more discussion on leaving unit. pt approached nurses station approx 45 min later more agitated, wanting to leave AMA, pt states he has an appointment with [facility] on Sun07/27/21 and he is getting antsy and will leave one way or the other. pt instructed to not make threatening remarks because that could change the status of his vol status. pt was offered Haldo PO to assist with agitation and pt was compliant with medication. contacted Dr Doll to report, received instruction to allow pt leave AMA due to vol status if and when pt requests to leave again.
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
[2021-07-24 18:56] VITALS: BP 104/63; PULSE 53; RESP 16; TEMP 36.4; O2SAT 98
--- NOTE | 2021-07-25 08:42 | PC.OT ---
OT EVALUATION ORDERS RECEIVED. PATIENT DISCHARGED BEFORE EVALUATION COULD BE ATTEMPTED.
== END 2021-07-24 18:55 | disposition left against medical advice (07) | DRG 885 ==
LOC: ER 16:54 → NP 07-23 08:08
PROVIDERS: Admitting Provider Psychiatry & Neurology Psychiatry; Emergency Provider Emergency Medicine; Family Provider Internal Medicine Medical Oncology; Visit Provider Psychiatry & Neurology Psychiatry
DX: F29 Unspecified psychosis not due to a substance or known physiological condition (principal); R45.851 Suicidal ideations; F31.9 Bipolar disorder, unspecified; F43.12 Post-traumatic stress disorder, chronic; F10.21 Alcohol dependence, in remission; F12.20 Cannabis dependence, uncomplicated; F41.1 Generalized anxiety disorder; F17.210 Nicotine dependence, cigarettes, uncomplicated; Z81.4 Family history of other substance abuse and dependence; Z62.810 Personal history of physical and sexual abuse in childhood; Z62.811 Personal history of psychological abuse in childhood
CPT/HCPCS: 80053; 80306; 80307; 83690; 84439; 84443; 85025; 99285

== ENCOUNTER → 2021-11-24 14:18 | Outpatient (BNVA) | payer OTHER, SELFPAY | PROVIDERS: Family Provider Internal Medicine Medical Oncology; Visit Provider Nurse Practitioner Psychiatric/Mental Health | DX: Z03.89 Encounter for observation for other suspected diseases and conditions ruled out (principal); F43.12 Post-traumatic stress disorder, chronic; F32.9 Major depressive disorder, single episode, unspecified; F12.20 Cannabis dependence, uncomplicated; R45.4 Irritability and anger | CPT/HCPCS: 80307 ==

== ENCOUNTER 2022-05-26 19:26 | Emergency (ER) | payer BC, MEDICAID, SELFPAY ==
[2022-05-26 19:32] VITALS: BP 164/91; PULSE 104; RESP 18; TEMP 36.7; O2SAT 98; BMI 21.1
--- NOTE | 2022-05-26 19:51 | ED.C_ITS ---
HPI - Psych General: Chief Complaint: Psychiatric Symptoms Stated Complaint: 96 HR HOLD Time Seen by Provider: 05/26/22 19:28 History of Present Illness: Patient is brought in by police with a court ordered 96-hour hold/evaluation. 2 days ago the patient presented to the outpatient clinic where he was very upset and threatening staff. Per the note and per the patient he threatened staff, but did not try to hurt himself with a knife. Patient states that he had not been taking his medication for a couple of months, but restarted it again 2 days ago when he left the clinic. States he is feeling much better today and was very surprised when the police showed up. On exam here the patient is very cooperative and calm. He denies suicidal or homicidal ideation. States he has no desire to hurt himself he just has outbursts of anger periodically. I discussed the case with Dr. Doll from psychiatry and he agrees that the patient is stable for discharge at this time as he is not exhibiting any suicidal or homicidal behavior. And is now back on his medication. Review of Systems Const: Denies: fever(s) or body aches Eyes: Denies: change in vision or blurry vision ENMT: Denies: throat pain or odynophagia Card: Denies: chest pain or palpitations Resp: Denies: dyspnea or productive cough GI: Denies: abdominal pain, nausea or vomiting : Denies: flank pain or dysuria Musc: Denies: neck pain or back pain Skin/Breast: Denies: rash or pruritus Neuro: Denies: headache(s) or numbness in extremities Psych: Denies: anxiety or change in appetite Endo: Denies: polyuria or excessive sweating PFS ED PFSH: Medical History (Updated 05/26/22 @ 19:51 by Aaron Bender MD) Antisocial personality disorder Cannabis use disorder, severe, dependence Cigarette nicotine dependence Generalized anxiety disorder History of bipolar disorder Post-traumatic stress disorder, chronic Psychiatric care Violent behavior Social History Smoking and tobacco status: current every day smoker cigarettes Packs smoked per day: 0.5 Years cigarettes smoked: 20 Quit status (tobacco): not considering quitting Second hand smoke exposure: Yes Alcohol intake: never Physical Exam Const: COMMON NORMALS: no acute distress, patient oriented x3, healthy appearing and alert HENMT: COMMON NORMALS: normocephalic and atraumatic HEAD & SCALP: normocephalic and atraumatic Eye: COMMON NORMALS: Equal, round and reactive pupils present and EOMs intact bilaterally PUPIL: Yes Equal, round and reactive pupils present Neck/C-Spine: COMMON NORMALS: full ROM and supple Resp: COMMON NORMALS: normal respiratory effort, No retractions and No use of accessory muscles Cardio: COMMON NORMALS: regular rate and regular rhythm RATE: regular rate RHYTHM: regular rhythm GI: COMMON NORMALS: Normal to inspection, nondistended, normoactive bowel sounds present, Soft to palpation and non-tender PALPATION: Yes Soft to palpation Back/Pelvis: COMMON NORMALS: thoracic and lumbar spine normal to inspection and no thoracic nor lumbar tenderness Extremity: COMMON NORMALS: normal to inspection and full ROM Neuro: COMMON NORMALS: patient oriented x3 SENSORIUM/ORIENTATION: Yes alert Psych: COMMON NORMALS: mental status grossly normal and cooperative Skin: COMMON NORMALS: no rashes or lesions noted and no wounds GENERAL SKIN EXAM: no rashes or lesions noted Course Vital Signs: Vital signs: Vital Signs Temperature 98.1 F 05/26/22 19:32 Pulse Rate 104 H 05/26/22 19:32 Respiratory Rate 18 05/26/22 19:32 Blood Pressure 164/91 05/26/22 19:32 Pulse Oximetry 98 05/26/22 19:32 Oxygen Delivery Me thod 05/26/22 19:32 MDM - Psych Medical Decision Making Patient is brought in by police with a court ordered 96-hour hold/evaluation. 2 days ago the patient presented to the outpatient clinic where he was very upset and threatening staff. Per the note and per the patient he threatened staff, but did not try to hurt himself with a knife. Patient states that he had not been taking his medication for a couple of months, but restarted it again 2 days ago when he left the clinic. States he is feeling much better today and was very surprised when the police showed up. On exam here the patient is very cooperative and calm. He denies suicidal or homicidal ideation. States he has no desire to hurt himself he just has outbursts of anger periodically. I discussed the case with Dr. Doll from psychiatry and he agrees that the patient is stable for discharge at this time as he is not exhibiting any suicidal or homicidal behavior. And is now back on his medication. Will discharge with precautions to return for worsening or changing symptoms. Discharge Plan Discharge Patient Disposition: Home Clinical Impression: Outbursts of anger Condition: Stable Prescriptions: New escitalopram oxalate 20 mg tablet 20 mg PO DAILY Qty: 30 0RF No Action chlorpromazine 25 mg tablet 25 mg PO BID PRN (Reason: severe acute agitation/psychosis) Qty: 30 2RF Rx Instructions: Take one tablet twice per day as needed-severe acute agitation escitalopram oxalate 20 mg tablet 20 mg PO .morning Qty: 30 3RF Rx Instructions: Take one tablet by mouth every morning Discharge Orders: Discharge ED (Routine); Ordered 05/26/22 Ordered By: Aaron Bender Patient Instructions: Escitalopram (By mouth) (Lexapro) Coding Level of Care Code ED Rn Clinical Documentation Specialist for Annabelle Castillo
[2022-05-26] MEDS: acetaminophen 325 mg Tablet 650 MG PO (20:03)
== END 2022-05-26 20:06 | disposition home or self-care (01) ==
PROVIDERS: Emergency Provider Emergency Medicine
DX: R45.4 Irritability and anger (principal); F17.210 Nicotine dependence, cigarettes, uncomplicated
CPT/HCPCS: 99283